=== PATIENT | male | born 1925 | race Caucasian/White ===

== ENCOUNTER → 2016-10-28 | Outpatient (CLI) | payer MEDICARE, OTHER ==
[~2016-10-28] MED LIST: ASPIRIN E.C. 8181 MG PO; CALCIUM-VITAMI1 EAC1 PO; COQ1050 MG PO; KLOR-CON SPRIN10 MEQ PO; LASIX20 M1 PO; LEVOTHYROXINE0.05 MG PO; LISINOPRIL10 MG PO; METOPROLOL TART75 MG PO; NATURAL VITAM1000 MG PO; PLAVIX 75MG TAB75 MG PO; TIMOLOL; VITAMIN E400 UNI1 PO
[2016-10-28 12:23] VITALS: BP 115/74
== END ==
LOC: AMSURD 11:33
DX: I70.90 Unspecified atherosclerosis (principal); Z95.0 Presence of cardiac pacemaker

== ENCOUNTER → 2016-11-10 | Outpatient (CLI) | payer MEDICARE, OTHER | LOC: LAB 11:11 | DX: I50.31 Acute diastolic (congestive) heart failure (principal); I35.0 Nonrheumatic aortic (valve) stenosis; I25.10 Atherosclerotic heart disease of native coronary artery without angina pectoris ==

== ENCOUNTER → 2016-11-25 | Outpatient (CLI) | payer MEDICARE, OTHER ==
[2016-10-28 12:23] VITALS: BP 115/74
== END ==
LOC: LAB 17:11
DX: I10 Essential (primary) hypertension (principal)

== ENCOUNTER → 2017-01-17 | Outpatient (CLI) | payer MEDICARE, OTHER ==
[2016-10-28 12:23] VITALS: BP 115/74
== END ==
LOC: LAB 13:59
DX: I50.31 Acute diastolic (congestive) heart failure (principal); I10 Essential (primary) hypertension

== ENCOUNTER → 2017-02-17 | Outpatient (CLI) | payer MEDICARE, OTHER ==
[2016-10-28 12:23] VITALS: BP 115/74
== END ==
LOC: LAB 14:21
DX: I50.31 Acute diastolic (congestive) heart failure (principal); N18.3 Chronic kidney disease, stage 3 (moderate); I35.0 Nonrheumatic aortic (valve) stenosis

== ENCOUNTER → 2017-03-20 | Outpatient (CLI) | payer MEDICARE, OTHER ==
[2016-10-28 12:23] VITALS: BP 115/74
== END ==
LOC: LAB 09:21
DX: I13.0 Hypertensive heart and chronic kidney disease with heart failure and stage 1 through stage 4 chronic kidney disease, or unspecified chronic kidney disease (principal); N18.3 Chronic kidney disease, stage 3 (moderate); I50.31 Acute diastolic (congestive) heart failure

== ENCOUNTER → 2017-03-27 | Outpatient (CLI) | payer MEDICARE, OTHER ==
[2016-10-28 12:23] VITALS: BP 115/74
== END ==
LOC: RAD 08:40
DX: N18.3 Chronic kidney disease, stage 3 (moderate) (principal); N40.0 Benign prostatic hyperplasia without lower urinary tract symptoms

== ENCOUNTER → 2017-05-18 | Outpatient (CLI) | payer MEDICARE, OTHER ==
[2016-10-28 12:23] VITALS: BP 115/74
== END ==
LOC: LAB 10:49
DX: N18.3 Chronic kidney disease, stage 3 (moderate) (principal); I10 Essential (primary) hypertension; N40.1 Benign prostatic hyperplasia with lower urinary tract symptoms

== ENCOUNTER → 2017-05-24 | Outpatient (CLI) | payer MEDICARE, OTHER ==
[2016-10-28 12:23] VITALS: BP 115/74
== END ==
LOC: LAB 13:34
DX: N18.3 Chronic kidney disease, stage 3 (moderate) (principal); I10 Essential (primary) hypertension; N40.1 Benign prostatic hyperplasia with lower urinary tract symptoms